=== PATIENT | female | born 1995 | race American Indian/Alaskan Native ===

== ENCOUNTER 2021-03-03 00:29 | Inpatient (IN) | payer OTHER, MEDICAID, SELFPAY ==
--- NOTE | 2021-03-03 | DI.US.S_ITS ---
PROCEDURE: US OB LIMITED INDICATIONS: NO CARE; CONTRACTIONS OUTSIDE/PRIOR DATING DATA: Last menstrual period (LMP): Unknown. First dating scan (date and location): 03/03/2021. Estimated date of delivery (FELICIANO) from first dating scan: 03/14/2021. TECHNIQUE: Real-time scanning was performed of the fetus, with image documentation and biometric measurements. Biophysical profile was also obtained. COMPARISON: None. FINDINGS: General: A single living intrauterine gestation is present. Presentation: Vertex. Placenta: Placental position is anterior, without previa. Amniotic fluid index: 5.0 cm, normal range is 5-24 cm. Single deepest vertical pocket is 2.6 cm. heart rate: 141 beats per minute. Maternal cervical canal: Not well seen. biometrics: Biparietal diameter: 9.2 cm, 37 weeks 3 days Head circumference: 33.4 cm, 38 weeks 1 day Abdominal circumference: 35.2 cm, 39 weeks 1 day Femur length: 7.6 cm, 38 weeks 5 days Composite gestational age from present scan: 38 weeks 3 days Estimated weight and percentile: 3571 g IMPRESSION: 1. Single living intrauterine demonstrated in vertex position with composite gestational age 38 weeks 3 days. 2. RADHA at lower limits of normal. We strive to produce accurate, complete, and clear reports of imaging services. To assist us in improving patient care, this report was composed using standard report templates and voice recognition software. Therefore, it may contain abnormal punctuation, insertions and/or omissions. Occasional wrong-word or sound-alike substitutions may occur. Though we review the report and make efforts to correct it, we do recommend that the report be read carefully in proper context to recognize any text inaccuracies. Dictated by: Rg Negron M.D. on 03/03/2021 at 1:37 Approved by: Rg Negron M.D. on 03/03/2021 at 1:42
[2021-03-03 00:45] VITALS: BP 129/63
--- NOTE | 2021-03-03 01:22 | PM.OBHP.1 ---
OB HPI Date/Time Date of admission: 03/03/21 Date Patient Seen: 03/03/21 Time Patient Seen: 01:22 History of Present Condition Chief complaint: L&D : 3 Para: 2 Narrative: Heidi Bruner is a 25 year old who has received no PNC presents with painful contractions. Patient states she experienced a gush of clear fluid PV @ 2200 on the evening of 03/01/2021. She has had two prior 's 8 and 4 years ago. Only admitted drug use is marijuana but uncooperative re: UDS. No PN labs, dating info, and GBS status unknown. Bedside OB US performed w/ composited EGA 38+3 weeks EGA, RADHA 5, vertex, anterior grade 3 placenta. History of Present care: none Dating criteria: based on 3rd trimester US only Ultrasounds: other (US in labor) Preadmission Labs Narrative: No labs performed prior to this admission Prior (ies) History: x 2 Evaluation Evaluation Baseline heart rate: 140 Variability: Moderate (11-25) monitor accelerations: Present Monitor Decelerations: Absent Contraction Frequency (minutes): 3 Uterine Contraction Intensity: Moderate Category of Tracing: Reactive Status: Category l Effacement: >/=80% station: 0 Position of cervix: posterior Consistency: soft PFSH Surgical History (Updated 10/30/17 @ 16:31 by Fiorella Rodriguez) No history of previous surgery (10/21/15) Social History Smoking Status: Never smoker Meds Home Medications and Allergies Home Medications Medication Instructions Recorded Confirmed Type ferrous sulfate 325 mg (65 mg 325 mg PO BID #60 tab 03/03/21 03/03/21 Rx iron) tablet Allergies Allergy/AdvReac Type Severity Reaction Status Date / Time No Known Drug Allergies Allergy Verified 05/12/18 12:04 Review of Systems Review of Systems Narrative: Problem-specific ROS positives included in HPI OB Exam HENMT Head: normal to inspection and normocephalic Eyes General: appearance normal, both eyes and all related structures Resp Effort & Inspection: normal respiratory effort and able to speak in complete sentences Cardio Rate: regular rate Rhythm: regular rhythm Heart Sounds: S1 normal, S2 normal and murmur Extremities Lower extremity: Yes normal to inspection External Female Exam: Yes normal external appearance Uterus Location (Fundal Height): 32 Presentation: vertex Estimated Weight (lbs): 7 Other: Unable to reach cervical os due to patient discomfort and very posterior position Objective Labs Result Diagrams: 03/04/21 06:37 03/04/21 06:37 Labs: Admission labs 03/03/2021: HIV, VDRL, COVID, HepB&C all negative/NR Assessment and Plan Assessment and Plan Assessment and Plan narrative: ASSESSMENT Intrauterine gestation, hauser, vertex, EGA 38-39 weeks (US in labor) No care GBS status unknown Anemia (Hypochromic/Microcytic) Marijuana use Amphetamine/Methamphetamine use PLAN Admit for delivery Desires [place] IV PCN for GBS prophylaxis hotel services supervisor consult See admission orders Time Spent with Patient Total time spent with greater than 50% in coordination of care (as documented) at patient's floor/unit and/or counseling patient:: 25 - 35 minutes
[2021-03-03 01:43] LABS: Add Manual Diff / Slide Review YES; Hematocrit 30.8 % (36-46); Hemoglobin 9.5 g/dL (12.0-16.0); Mean Corpuscular HGB Conc 30.9 % (30-36); Mean Corpuscular Hemoglobin 21.7 PG (26-34); Mean Corpuscular Volume 70.2 fL (80-100); Platelet Count 305 X10^3/uL (150-400); Red Blood Cell Count 4.39 X10^6/uL (4.0-5.2); Red Cell Distribution Width 18.2 % (11.6-14.8); White Blood Cell Count 16.5 X10^3/uL (4.5-11.0)
[2021-03-03] MEDS: PENICILLIN G POTASSIUM 5,000,000 UNIT in DEXTROSE 5% IN WATER 250 ML IV (01:53)
[2021-03-03] MEDS: LACTATED RINGERS 1,000 ML 150 ML IV (01:53)
[2021-03-03 02:35] LABS: COVID19 -Nasal RAPID Negative (Negative)
[2021-03-03 06:11] LABS: Ur Creatinine 20 (Normal)
[2021-03-03 06:12] LABS: UR Morphine/Opiate cutoff 300 Negative (Negative); Ur Specific Gravity 1.015 (Normal); Urine Amphetamines Positive (Negative); Urine Barbiturates Negative (Negative); Urine Benzodiazepines Negative (Negative); Urine Cocaine Negative (Negative); Urine MDMA Negative (Negative); Urine Methadone Negative (Negative); Urine Methamphetamines Positive (Negative); Urine Oxycodone Negative (Negative); Urine Phencyclidine Negative (Negative); Urine Tetrahydrocannabinol Positive (Negative); Urine Tricyclic Antidepressant Negative (Negative); Urine pH 5 (Normal)
--- NOTE | 2021-03-03 06:26 | PM.OBPNLAB ---
Date/Time Date Patient Seen: 03/03/21 Time Patient Seen: 06:26 Pain Control Pain control: epidural Comments: Sleeping comfortably Pelvic Exam Dilation (cm): 4 Effacement (%): 100 station: +1 Amniotic membrane status: Ruptured Contractions Contraction frequency (min): 2 Contraction duration (min): 1 Contraction pattern: Regular Contraction phase: Resting Contraction intensity: Moderate Status status: Category l Monitor Accelerations: Present Monitor Decelerations: Episodic (Mild variables) Monitor Variability: Moderate Assessment and Plan Assessment: active labor Plan: continuous present management Comments: Anticipate
[2021-03-03 06:40] LABS: Neutrophils Absolute Manual 13860 /uL (3000-5900); Total Cells Counted 100
[2021-03-03 06:41] LABS: Anisocytosis 2+; Hypochromasia 1+
[2021-03-03] MEDS: LACTATED RINGERS 1,000 ML 1000 ML IV (07:28)
[2021-03-03] MEDS: PENICILLIN G POTASSIUM 3,000,000 UNIT/50 ML FROZ.PIGGY 100 UNIT IV (07:29)
[2021-03-03] MEDS: FENT 2MCG/ML BUPIV 0.125% EPI 200 MCG/100 ML PLAST..BAG 20 MCG EPIDURAL (07:31)
[2021-03-03] MEDS: OXYTOCIN 10 UNIT/ML VIAL IM (09:12)
[2021-03-03] MEDS: METHYLERGONOVINE 0.2 MG/ML VIAL IM (09:12)
--- NOTE | 2021-03-03 09:22 | PM.OBPRVD ---
Events: No Care Labor & Delivery Delivery date: 03/03/21 Intrapartal Events: Abruptio Placenta, Acceleration and Deceleration Cervical ripening method: none Induction method: none Delivery monitor: external FHT (intermittent as frequently removed by patient) and external uterine Route of delivery: L&D Laceration Description: Periurethral - 1st Degree and Perineal - 1st Degree Delivery repair: vicryl Estimated blood loss (mL): 300 Anesthesia Type: Epidural Complications: No care, maternal use of methamphetamine Narrative: This patient was admitted in labor overnight, with no care. Bedside ultrasound revealed a cephalic 38 week fetus. The patient labored spontaneously and progressed to fully dilated unaugmented. She pushed with significant coaching and was delivered of a healthy baby boy, weight 7#4, apgars 9+9. A loose nuchal cord was reduced at the perineum, and the shoulders delivered with ease. She was delivered of the placenta shortly thereafter with signs of partial placental abruption, and for a time had brisk bleeding that responded to pitocin and 1x 0.2mg IM methergine. The patient declined uterine massage and clot evacuation, though the epidural remained in place. bilateral 1st degree perineal lacerations were repaired with 3-0 vicryl with interrupted suture where necessary to achieve hemostasis, and 1st degree periurethral lacerations were spontaneously hemostatic. The intrapartum and immediate course were otherwise uneventful. [place] Baby 1: Infant gender: Male Presentation: vertex Placenta delivery description: Spontaneous Cord Vessel Description: 3 Vessels and Nuchal Cord score (1 min): 9 score (5 min): 9 weight: 7 lb 4 oz Plan for aftercare: Routine care
--- NOTE | 2021-03-03 10:38 | CM.SWNOTE ---
Addendum entered by JON Lion 03/03/21 11:53: ADD: Assigned animal treatment investigator is Judy who plans to leave her office at 1145 to visit mom and baby at [facility] Original Note: SAW MAKER Note According to director international, Lorrie, CPS referral needed for this 25 yo who arrives w/o any pre care, tox + for methamphetamines and marijuana; mom has delivered a healthy baby boy this morning at 0849 Apgars 8/9, weight TBD Placed call to CPS, spoke w/Sourav Smith P# [phone], discussed above. This has screened in as emergent which triggers a call by a CPS animal treatment investigator w/in 24 hrs, most typically. Ref# [id number] SAW MAKER team will plan to follow JON Flowers
[2021-03-03] MEDS: IBUPROFEN 600 MG TABLET PO ×2 (11:18→17:52)
[2021-03-03 17:53] LABS: Hepatitis B Surface Antigen NEGATIVE s/c (NEGATIVE); Rubella Antibody IgG 8.6 IU/mL (>15)
[2021-03-03 18:36] LABS: HIV 1 & 2 Ab/Ag 4th Gen Combo NEGATIVE (NEGATIVE); Hep C Virus Ab w/Reflex Quant NEGATIVE s/c (NEGATIVE)
[2021-03-04] MEDS: ACETAMINOPHEN 325 MG TABLET 650 MG PO ×4 (00:18→21:56)
[2021-03-04] MEDS: IBUPROFEN 600 MG TABLET PO ×4 (00:19→21:55)
[2021-03-04 01:29] VITALS: BP 100/77; PULSE 60; RESP 16; TEMP 36.7
[2021-03-04 07:13] LABS: Hematocrit 25.8 % (36-46); Mean Corpuscular HGB Conc 31.2 % (30-36); Mean Corpuscular Hemoglobin 21.6 PG (26-34); Mean Corpuscular Volume 69.3 fL (80-100); Platelet Count 274 X10^3/uL (150-400); Red Blood Cell Count 3.73 X10^6/uL (4.0-5.2); Red Cell Distribution Width 17.7 % (11.6-14.8)
[2021-03-04 07:40] LABS: Add Manual Diff / Slide Review YES; White Blood Cell Count 38.4 X10^3/uL (4.5-11.0)
[2021-03-04 08:08] LABS: RPR Screen Non Reactive (Non Reactive)
[2021-03-04 08:18] LABS: Neutrophils Absolute Manual 32256 /uL (3000-5900); Total Cells Counted 100
[2021-03-04 08:20] LABS: Anisocytosis 2+; Microcytosis 2+; Polychromasia 1+
--- NOTE | 2021-03-04 09:44 | PM.OBPN.1 ---
Subjective - OB Subjective Patient comments: other (Patient complains of leg and lower abdominal pain) baby status: doing well and nursing well [place] feeding status: exclusively breast feeding Narrative: day 1. Date Patient Seen: 03/04/21 Time Patient Seen: 09:44 Exam Vital Signs (past 8 hours): Blood pressure 102/68, pulse 74, current temperature 98.2? with maximum temperature 100.5? Narrative Exam Narrative: Abdomen is soft, nontender. Uterus is firm, at U, tender to palpation. Moderate lochia. Extremities without edema but patient complains of tenderness bilaterally. Objective Labs Result Diagrams: 03/04/21 06:37 Labs: Laboratory Results - last 24 hr 03/03/21 03/03/21 03/03/21 01:15 01:15 01:15 WBC RBC Hgb Hct MCV MCH MCHC RDW Plt Count Neut % (Auto) Lymph % (Auto) [place] % (Auto) Eos % (Auto) Baso % (Auto) Lymph # (Auto) [place] # (Auto) Baso # (Auto) Total Counted Seg Neutrophils % Band Neutrophils % Lymphocytes % (Manual) Monocytes % (Manual) Neutrophils # (Manual) RBC Morphology Polychromasia Anisocytosis Microcytosis Serum VDRL Non reactive Hep Bs Antigen Negative Hepatitis C Antibody HIV 1&2 Ab/P24 Ag 4thGn Negative Rubella Antibody 8.6 L 03/03/21 03/04/21 01:15 06:37 WBC 38.4 H* D RBC 3.73 L Hgb 8.0 L Hct 25.8 L MCV 69.3 L MCH 21.6 L MCHC 31.2 RDW 17.7 H Plt Count 274 Neut % (Auto) Not Reportable Lymph % (Auto) Not Reportable [place] % (Auto) Not Reportable Eos % (Auto) Not Reportable Baso % (Auto) Not Reportable Lymph # (Auto) Not Reportable [place] # (Auto) Not Reportable Baso # (Auto) Not Reportable Total Counted 100 Seg Neutrophils % 76.0 H Band Neutrophils % 8.0 H Lymphocytes % (Manual) 10.0 L Monocytes % (Manual) 6.0 Neutrophils # (Manual) 98096 H RBC Morphology See below Polychromasia 1+ H Anisocytosis 2+ H Microcytosis 2+ H Serum VDRL Hep Bs Antigen Hepatitis C Antibody Negative HIV 1&2 Ab/P24 Ag 4thGn Rubella Antibody Assessment & Plan Assessment and Plan (1) Vaginal delivery: Status: Acute (2) endometritis: Status: Acute Plan day: 1 plan OB: routine care Comments: Due to the extremely high white blood cell count and patient uterine tenderness will treat for at least 24 hours with IV antibiotics. Time Spent With Patient Time: Total time spent is greater than 50% in coordination of care (as documented) at patient's floor/unit and/or counseling patient: Time with patient: less than 15 minutes
[2021-03-04] MEDS: PIPERACILLIN/TAZO 4.5 GM in SODIUM CHLORIDE 0.9% 100 ML 200 ML IV (10:27)
[2021-03-04 10:40] LABS: Alanine Aminotransferase 21 IU/L (<35); Albumin 3.6 g/dL (3.5-5.0); Alkaline Phosphatase 271 U/L (38-126); Aspartate Aminotransferase 60 IU/L (14-36); Bilirubin Total 0.4 mg/dL (0.2-1.3); Blood Urea Nitrogen 8 mg/dL (7-17); Calcium 9.3 mg/dL (8.4-10.2); Carbon Dioxide 20 mmol/L (22-32); Chloride 110 mmol/L (98-107); Estimated Glomerular Filt Rate > 60.0 mL/min (>60); Globulin 3.7 g/dL (1.7-4.1); Glucose 58 mg/dL (70-100); HEMOLYSIS < 15 (0-50); Potassium 4.3 mmol/L (3.4-5.1); Sodium 137 mmol/L (137-145); Total Protein 7.3 g/dL (6.3-8.2)
[2021-03-04] MEDS: PIPERACILLIN/TAZO 3.375 GM in SODIUM CHLORIDE 0.9% 100 ML 25 ML IV ×2 (14:42→21:54)
[2021-03-05] MEDS: ACETAMINOPHEN 325 MG TABLET 650 MG PO (03:58)
[2021-03-05] MEDS: IBUPROFEN 600 MG TABLET PO ×2 (03:59→10:44)
[2021-03-05] MEDS: LANOLIN OINT 7 GM 1 APPLIC TOP (04:36)
[2021-03-05] MEDS: PIPERACILLIN/TAZO 3.375 GM in SODIUM CHLORIDE 0.9% 100 ML 25 ML IV ×2 (05:56→14:07)
[2021-03-05 06:01] LABS: Add Manual Diff / Slide Review NO; Basophils Absolute Auto 300 /uL (0-100); Eosinophils Absolute Auto 100 /uL (0-450); Eosinophils Percent Auto 0.4 % (2-4); Hematocrit 25.6 % (36-46); Lymphocytes Absolute Auto 3700 /uL (1100-4500); Lymphocytes Percent Auto 13.5 % (25-40); Mean Corpuscular HGB Conc 31.1 % (30-36); Mean Corpuscular Hemoglobin 21.6 PG (26-34); Mean Corpuscular Volume 69.3 fL (80-100); Monocytes Absolute Auto 1200 /uL (0-900); Monocytes Percent Auto 4.5 % (3-14); Neutrophils Absolute Auto 22200 /uL (1500-7000); Neutrophils Percent Auto 80.6 % (50-75); Platelet Count 317 X10^3/uL (150-400); Red Blood Cell Count 3.69 X10^6/uL (4.0-5.2); Red Cell Distribution Width 17.5 % (11.6-14.8); White Blood Cell Count 27.6 X10^3/uL (4.5-11.0)
[2021-03-05 06:35] LABS: Anisocytosis 2+; Microcytosis 2+
[2021-03-05 06:36] LABS: Hypochromasia 1+
--- NOTE | 2021-03-05 09:58 | P.DS_ITS ---
Discharge Providers Provider Date of admission: 03/03/21 00:29 Discharge Date: 03/05/21 Primary care physician: Cathi Allen DO Consults: 03/03/21 01:37 Consult to Anesthesiology Urgent Comment: Consulting Provider: Carlos Rodriguez Reason for consultation: [place] placement in labor Has provider been notified: No 03/03/21 06:29 Consult to TIER [place] - Animal Control Licensing Worker Routine Comment: No care; +UDS amphetamines/methamphetamin TIER [place] Consult: APS/CPS Crisis Referral 03/04/21 09:20 Consult to Associate Professor Of Media Arts Routine Comment: Discharge provider: Ashley Huang MD Summary Hospital Course Date Patient Seen: 03/05/21 Time Patient Seen: 09:59 Diagnoses: Spontaneous vaginal delivery with repair of first-degree tears. Endometritis Hospital Course: Patient arrived Labor and delivery in spontaneous labor. she had no care and urine drug screen was positive for amphetamines, methamphetamines, and THC. she had a spontaneous vaginal delivery with repair of first-degree tears. Possible evidence of abruption. Patient had a elevated temperature and significantly elevated white blood cell count at 43 with uterine tenderness so she was treated for 24 hours with IV antibiotics. She remained afebrile. Her white count decreased rapidly. she still complained of some uterine tenderness but no other evidence for infection so antibiotics were stopped. Patient is ambulatory and urinating well. She is breast-feeding without difficulty. Peripartum Data Delivery Method: Natural Vaginal Laceration Description: Labial Procedures: Spontaneous vaginal delivery, repair of first-degree tears, IV antibiotics complications: other ( elevated white count, 1 elevated temperature, uterine tenderness treated for 24 hours with IV antibiotics) [place] 1: Gender: Male Disposition of : other ( baby will be held until final disposition by social science analyst) Discharge Diagnosis (1) Vaginal delivery: Status: Acute (2) endometritis: Status: Acute Status at Discharge Cognitive/behavioral status at discharge: oriented Functional status at discharge: independent ambulation Overall status at discharge: patient is progressing back to baseline Time Spent with Patient Time attestation: Total time spent providing and/or coordinating discharge services: Time spent: Less than 30 minutes Objective Labs Result Diagrams: 03/05/21 05:40 03/04/21 06:37 Labs: Laboratory Results - last 24 hr 03/04/21 03/05/21 06:37 05:40 WBC 27.6 H RBC 3.69 L Hgb 8.0 L Hct 25.6 L MCV 69.3 L MCH 21.6 L MCHC 31.1 RDW 17.5 H Plt Count 317 Neut % (Auto) 80.6 H Lymph % (Auto) 13.5 L [place] % (Auto) 4.5 Eos % (Auto) 0.4 L Baso % (Auto) 1.0 Neut # (Auto) 40011 H Lymph # (Auto) 3700 [place] # (Auto) 1200 H Eos # (Auto) 100 Baso # (Auto) 300 H RBC Morphology See below Hypochromasia 1+ H Anisocytosis 2+ H Microcytosis 2+ H Sodium 137 Potassium 4.3 Chloride 110 H Carbon Dioxide 20 L BUN 8 Creatinine 0.50 L Estimated GFR > 60.0 BUN/Creatinine Ratio 16.0 Glucose 58 L Calcium 9.3 Total Bilirubin 0.4 AST 60 H ALT 21 Alkaline Phosphatase 271 H Total Protein 7.3 Albumin 3.6 Globulin 3.7 Albumin/Globulin Ratio 1.0 Exam Vital Signs (past 8 hours): blood pressure 100/77, pulse 60, temperature 98.1? Narrative Exam Narrative: Patient's abdomen is soft, nontender. Patient continues to complain of some tenderness with palpation of her uterus which is firm and at U. mild lochia. Extremities without edema patient does complain of leg tenderness bilaterally but no evidence DVT. Patient's blood type is A positive. she is rubella nonimmune. She will be offered rubella vaccine and Tdap prior to discharge. Discharge Plan Discharge Plan Patient Disposition: Home Discharge orders & Medications Prescriptions: New ferrous sulfate 325 mg (65 mg iron) tablet 325 mg PO BID Qty: 60 3RF Rx Instructions: Take twice daily with food. Follow up/Referrals: Kelle Wood MD [Physician] - 6 Weeks ( visit) Cathi Allen DO [Primary Care Provider] - Diet/Activity/Treatments Diet: Regular Activity: Nothing in the vagina for 6 weeks. Avoid lifting more than 10 pounds for 6 weeks. If you have increasing fevers, pain, bleeding, headaches or visual changes, shortness of breath, or any other symptoms or concerns, call our clinic or come to the emergency room. Skin/Wound/Dressing Care Report to your healthcare provider any signs of infection, such as:: chills, fever, night sweats, increased pain, unusual drainage and unusual redness Visit Report/Discharge Packet Instructions: DI for Labor and Delivery, Vaginal Discharge Data Primary Care Provider: Cathi Allen
[2021-03-05] MEDS: PRENATAL VIT,CALC/IRON/FOLIC 1 TABLET 1 TAB PO (10:43)
[2021-03-05] MEDS: MEASLES,MUMPS,RUBELLA VACC/PF 0.5 ML VIAL SUBCUT (17:53)
[2021-03-05] MEDS: TET,DIPH,PERTUSS(ACELL),VAC/PF 0.5 ML SYRINGE IM (17:55)
== END 2021-03-05 18:44 | disposition home or self-care (01) | DRG 560 ==
PROVIDERS: Obstetrics & Gynecology; Pediatrics; Specialist; Admitting Provider Obstetrics & Gynecology; Family Provider Family Medicine; PCP Family Medicine; Referring Provider Obstetrics & Gynecology; Visit Provider Obstetrics & Gynecology
DX: O70.0 First degree perineal laceration during delivery (principal); O45.93 Premature separation of placenta, unspecified, third trimester; O76 Abnormality in fetal heart rate and rhythm complicating labor and delivery; O69.81X0 Labor and delivery complicated by cord around neck, without compression, not applicable or unspecified; O09.33 Supervision of pregnancy with insufficient antenatal care, third trimester; Z3A.38 38 weeks gestation of pregnancy; Z37.0 Single live birth; Z20.822 Contact with and (suspected) exposure to COVID-19; O75.3 Other infection during labor; O99.02 Anemia complicating childbirth; D64.9 Anemia, unspecified; O99.324 Drug use complicating childbirth; F15.90 Other stimulant use, unspecified, uncomplicated; F12.90 Cannabis use, unspecified, uncomplicated; O99.334 Smoking (tobacco) complicating childbirth; F17.200 Nicotine dependence, unspecified, uncomplicated
CPT/HCPCS: 01967; 36415; 59050; 59409; 76815; 80053; 80055; 80305; 85007; 85025; 86803; 86850; 86900; 86901; 87389; 87635; 99222; 99238; C9803; 90715; G0379; J2210; J2540; J2543; J2590; J3010